=== PATIENT | female | born 1975 | race Caucasian/White ===

== ENCOUNTER 2018-08-17 07:49 | Emergency (ER) | payer OTHER, MEDICAID, SELFPAY ==
[2018-08-17] VITALS (10 sets, daily range): BP systolic 119–144; BP diastolic 79–96; PULSE 88–94; RESP 14; TEMP 36.6; O2SAT 86–98
--- NOTE | 2018-08-17 08:23 | W.ED.GENAD ---
Discharge Plan Disposition Patient Disposition: HOME Condition: Improving Discharge Details Chief Complaint: FlankPain Clinical Impression: Left flank pain Primary Care Provider: None,None ED Provider: Chino Florence Home Meds and New Rx's Prescriptions: New ondansetron HCl [Zofran] 4 mg tablet 4 mg PO QID PRN (Reason: nausea and vomiting) Qty: 10 RF: 0 hydrocodone-acetaminophen 5-325 mg tablet 1 tab PO Q6H PRN (Reason: pain) Qty: 5 RF: 0 tamsulosin [Flomax] 0.4 mg capsule 0.4 mg PO DAILY Qty: 5 RF: 0 Continued acetaminophen [Mapap Extra Strength] 500 MG tablet 1,000 mg PO QID RF: 0 albuterol sulfate [ProAir HFA] 8.5 GM HFA aerosol inhaler 2 puff Inhalation QID RF: 0 Flovent HFA 220 mcg/actuation Hfa Aerosol Inhaler 2 puff INHALATION BID PRNRF: 0 epinephrine [EpiPen 2-Oscar] 0.3 mg/0.3 mL Auto-Injector 0.3 mg IM ONCE RF: 0 Discharge Instructions Instructions: Flank Pain (ED) Additional Instructions: We will assist you in arranging outpatient follow-up to establish primary care as well as for urology follow-up and recheck. Take the Flomax as prescribed once daily while having symptoms of pain. Stop if you are not having ongoing pain. This medication may make you lightheaded when standing up quickly. May use Tylenol or the prescribed Vicodin as needed for severe pain. Return if you develop a fever, worsening discomfort, or any other acute concern Medical Decision Making 43-year-old female presents from her newly established home in [facility] with approximately 3 days of intermittent episodes of left flank pain with associated dysuria, similar to previous episodes of renal colic. She is afebrile and otherwise well-appearing. She certainly has tenderness in the left flank and left lower quadrant. Differential diagnosis includes renal colic, pyelonephritis or urinary tract infection. Patient IV access established, given analgesic, antiemetic, fluid bolus. Given her history of kidney stones patient referred for labs and CT imaging. Labs are notable for ketones in the urine, mildly elevated white blood cell count. BUN 31, creatinine 1.2. Patient improved with medication. Her CT images are without acute finding. I question a distal ureteral stone but there is no hydronephrosis or perinephric strain. She is stable and appropriate for outpatient management. Will arrange outpatient urology follow-up and assist her in establishing primary care. I will place her on Flomax for probable left ureteral colic as well as a few analgesics for home to which she is been consented. HPI General Mode of arrival: ambulatory. Date/Time Provider Initiated Documentation: 08/17/18 08:12. Limitations to Documentation: no limitations. Information obtained by: patient. History of Present Illness 43 year old F presents to the emergency department with the chief complaint of Stuttering left flank pain over days, described as moderate and similar to prior episodes, Quality is described as aching, and is localized to the abdomen and left. Patient reports radiation to back. Patient started experiencing this day(s) and it has been intermittent. No relieving factors improve symptom(s), No exacerbating factors reported . Patient notes no other symptoms.; denies fever/chills. Patient did receive the following treatments prior to arrival, none Related Data Home Medications Medication Instructions Recorded Confirmed acetaminophen [Mapap Extra 1,000 mg PO QID 05/20/14 08/17/18 Strength] albuterol sulfate [ProAir HFA] 2 puff INHALATION QID 05/20/14 08/17/18 Flovent HFA 2 puff INHALATION BID PRN 08/17/18 08/17/18 epinephrine [EpiPen 2-Oscar] 0.3 mg IM ONCE 08/17/18 08/17/18 hydrocodone-acetaminophen 1 tab PO Q6H PRN #5 tab 08/17/18 ondansetron HCl [Zofran] 4 mg PO QID PRN #10 tab 08/17/18 tamsulosin [Flomax] 0.4 mg PO DAILY #5 cap 08/17/18 Previous Rx's Medication Instructions Recorded hydrocodone-acetaminophen 1 tab PO Q6H PRN #5 tab 08/17/18 ondansetron HCl [Zofran] 4 mg PO QID PRN #10 tab 08/17/18 tamsulosin [Flomax] 0.4 mg PO DAILY #5 cap 08/17/18 Allergies Allergy/AdvReac Type Severity Reaction Status Date / Time iodine Allergy Severe Anaphylaxsi Unverified 08/17/18 08:20 s NSAIDS (Non-Steroidal Allergy Severe Hives Unverified 08/17/18 08:20 Anti-Inflamma allopurinol Allergy Unverified 08/17/18 08:20 Penicillins Allergy Unverified 08/17/18 08:20 hydrochlorothiazide AdvReac Intermediate Unverified 08/17/18 08:20 tramadol AdvReac Intermediate Nausea Unverified 08/17/18 08:20 quetiapine fumarate AdvReac Unverified 08/17/18 08:20 [From Seroquel] bee stings Allergy Severe Anaphylaxsi Uncoded 08/17/18 08:20 s seafood Allergy Severe Anaphylaxsi Uncoded 08/17/18 08:20 s General Stated Complaint: FlankPain LUDWIG: 3 Review of Systems Review of Systems 6 systems reviewed and o/w - PFSH Medical History Bipolar 1 disorder, depressed (Acute) Closed fracture dislocation of sacroiliac joint with routine healing (Acute) Degenerative joint disease of low back (Acute) Fracture of left great toe (Acute) Asthma (Chronic) Kidney calculi (Chronic) Surgical History H/O hysterectomy with oophorectomy (Acute) History of carpal tunnel surgery of left wrist (Acute) History of carpal tunnel surgery of right wrist (Acute) History of repair of anterior cruciate ligament of left knee (Acute) Hx of ovarian cystectomy (Acute) S/P bilateral breast reduction (Acute) History of cholecystectomy (Chronic) Social History Smoking/Tobacco Use Status: Never Alcohol Intake: current Alcohol Intake frequency: a few times a month Drug use: Occasionally Substance use type: marijuana Do you feel safe at home: Yes Do you feel safe in your relationship?: Yes Exam Narrative Exam Narrative: GEN: awake, alert, oriented 3. Pleasant, well groomed, interactive. HEAD: Normocephalic, atraumatic ENT: Mucous membranes moist, oropharynx unremarkable, External ear exam unremarkable EYES: PERRL, EOMI NECK: Full ROM, no ISABEL, no menigismus CHEST/RESP: Nontender, clear to auscultation bilateral, no wheeze/rhonchi/rales CARDIOVASCULAR: RRR, no murmur, rub michael. 2+ Rad pulse bilateral ABDOMEN: Soft, tender in the left lateral lower quadrant and left flank to percussion, no mass. +Bowel sounds EXT: Full ROM, no edema, no rash Neuro: Grossly normal neurologic exam, conversant, interactive. Psych: Speech fluent, thoughts congruent, affect normal Course Vital Signs Temperature 36.6 C 08/17/18 07:58 Pulse 94 H 08/17/18 07:58 Respiratory Rate 14 08/17/18 07:58 Blood Pressure 135/96 H 08/17/18 07:58 Pulse Oximetry 97 08/17/18 07:58 Temperature 36.6 C 08/17/18 07:58 Temperature Source Tympanic 08/17/18 07:58 Pulse 94 H 08/17/18 07:58 Respiratory Rate 14 08/17/18 07:58 Respiratory Effort Non-Labored 08/17/18 08:15 Blood Pressure 135/96 H 08/17/18 07:58 Blood Pressure Position Sitting 08/17/18 07:58 Pulse Oximetry 97 08/17/18 07:58 Oxygen Delivery Method Room Air 08/17/18 07:58 Oxygen Flow Rate 0 08/17/18 07:58 Pain Level 8 08/17/18 08:07 Comment 08/17/18 07:58
[2018-08-17 08:24] LABS: Bilirubin Negative (Negative); Blood Negative (Negative); Clarity Sl Cloudy; Glucose Negative (Negative); Ketones Trace mg/dL (Negative); Leukocyte Esterase Negative (Negative); Nitrite Negative (Negative); Specific Gravity 1.025 (1.005-1.025); Urobilinogen 0.2 EU/dL (Up TO 0.2)
[2018-08-17] MEDS: Normal Saline Flush 10 ML SYR IVP (08:25)
[2018-08-17 08:40] LABS: Abs Immature Grans 0.04 k/cumm (0.0-0.09); Absolute Basophil Count 0.07 k/cumm (0.0-0.2); Absolute Lymphocyte Count 4.89 k/cumm (1.2-3.4); Basophils % 0.5; Eosinophils % 1.1; HCT 37.4 % (36.0-46.0); HGB 12.7 g/dL (12.0-15.5); Immature Grans % 0.3; Mean Corpuscular Hemoglobin 29.6 pg (27.0-33.0); Mean Corpuscular Volume 87.2 fL (80-95); Mean Platelet Volume 9.8 fL (8.0-11.0); Monocytes % 7.9; Neutrophils % 55.2; Platelet Count 374 x1000/uL (130-400); RBC 4.29 m/cumm (4.00-5.20); RBC Distribution Width 12.5 % (11.7-14.6); White Blood Cell Count 13.96 k/cumm (4.4-10.8)
[2018-08-17 08:41] LABS: Absolute Eosinophil Count 0.15 k/cumm (0.0-0.7); Absolute Neutrophil Count 7.71 k/cumm (1.2-6.7)
[2018-08-17] MEDS: Normal Saline 1,000 ML 1000 ML IV (08:44)
[2018-08-17] MEDS: Ondansetron 4 MG/2 ML VIAL IVP (08:49)
[2018-08-17] MEDS: HYDROmorphone 2 MG/ML VIAL 1 MG IVP ×2 (08:52→09:35)
[2018-08-17 08:53] LABS: ALT 40 U/L (12-78); AST 22 U/L (15-37); Alkaline Phosphatase 126 U/L (46-116); Anion Gap 11.4 mmol/L (3-11); BUN 31 mg/dL (7-18); Bilirubin, Total 0.6 mg/dL (0.2-1.0); CO2 26.6 mmol/L (21.0-32.0); CREATININE 1.25 mg/dL (0.55-1.02); Calcium 9.2 mg/dL (8.5-10.1); Chloride 98 mmol/L (98-107); Estimated GFR 46.35 (mL/min/1.73m2); Glucose 103 mg/dL (70-100); Potassium 3.5 mmol/L (3.5-5.1); Sodium 136 mmol/L (136-145); Total Protein 7.8 g/dL (6.4-8.2)
--- NOTE | 2018-08-17 09:23 | DI.CT_ITS ---
SYMPTOM/DIAGNOSIS: LT FLANK PAIN, DYSURIA RENAL COLIC CT: Comparison is made with 08/21/14. There is no evidence of urinary tract calculi or hydronephrosis. The bladder is mildly distended and unremarkable. The patient is status post hysterectomy. The visualized portions of the lung bases show dependent changes. The patient is status post cholecystectomy. There is no biliary dilatation. The spleen, pancreas and adrenals appear normal. There is no bowel dilatation or inflammatory change. There are scattered diverticula in the colon. The appendix appears normal. The aorta is normal in diameter. There is hardware across both SI joints creating mild artifact in the adjacent portions of the pelvis. IMPRESSION: No acute abnormality.
[2018-08-17] MEDS: Tamsulosin 0.4 MG CAPCR PO (09:35)
--- NOTE | 2018-08-17 09:40 | PDOC.ERCMPRO ---
Care Management Progress Note 08/17-Dr. Florence requested assistance with establishing a PCP ([facility]) and f/u for abdominal and flank pain. Referral faxed to [facility] this am.
--- NOTE | 2018-08-17 09:41 | CMPROGNOTE_ITS ---
Care Management Progress Note 08/17-Dr. Florence requested assistance with establishing a PCP ([facility]) and f/u for abdominal and flank pain. Referral faxed to [facility] this am.
== END 2018-08-17 10:18 | disposition home or self-care (01) ==
PROVIDERS: Emergency Provider Emergency Medicine
DX: R10.9 Unspecified abdominal pain (principal); R30.0 Dysuria
CPT/HCPCS: 36415; 80053; 96361; 96374; 96375; 99284; 74176; 81003; 85025; J2405

== ENCOUNTER 2018-08-22 07:32 | Emergency (ER) | payer OTHER, MEDICAID, SELFPAY ==
[2018-08-22 07:34] VITALS: BP 140/89; PULSE 93; RESP 16; TEMP 36.2; O2SAT 100
[2018-08-22 07:49] LABS: Bilirubin Negative (Negative); Blood Negative (Negative); Clarity Clear; Glucose Negative (Negative); Ketones Negative (Negative); Leukocyte Esterase Negative (Negative); Nitrite Negative (Negative); Specific Gravity >= 1.030 (1.005-1.025); Urobilinogen 0.2 EU/dL (Up TO 0.2)
[2018-08-22] MEDS: Acetaminophen 500 MG TAB 1000 MG PO (08:04)
[2018-08-22] MEDS: Lidocaine 5% Patch 1 PATCH TP (08:04)
--- NOTE | 2018-08-22 08:15 | W.ED.GENAD ---
Discharge Plan Disposition Patient Disposition: HOME Condition: Good Discharge Details Chief Complaint: FlankPain Clinical Impression: Left low back pain, Left flank pain Primary Care Provider: None,None ED Provider: Nacho Messer Home Meds and New Rx's Prescriptions: New lidocaine [Lidoderm] 1 PATCH patch 1 patch Topical Q24H Qty: 4 RF: 0 cyclobenzaprine 10 mg tablet 10 mg PO TID Qty: 14 RF: 0 Continued acetaminophen [Mapap Extra Strength] 500 MG tablet 1,000 mg PO QID RF: 0 albuterol sulfate [ProAir HFA] 8.5 GM HFA aerosol inhaler 2 puff Inhalation QID RF: 0 Flovent HFA 220 mcg/actuation Hfa Aerosol Inhaler 2 puff INHALATION BID PRNRF: 0 epinephrine [EpiPen 2-Oscar] 0.3 mg/0.3 mL Auto-Injector 0.3 mg IM ONCE RF: 0 ondansetron HCl [Zofran] 4 mg tablet 4 mg PO QID PRN (Reason: nausea and vomiting) Qty: 10 RF: 0 tamsulosin [Flomax] 0.4 mg capsule 0.4 mg PO DAILY Qty: 5 RF: 0 Discharge Instructions Instructions: Low Back Strain (ED), Flank Pain (ED) Additional Instructions: Please take the Tylenol, Lidoderm patch and Flexeril as directed. Do not drive any vehicles, operate heavy machinery or use firearms when taking Flexeril as it may make you lightheaded and dizzy. if you notice any worsening of your symptoms, or any new symptoms such as vomiting, diarrhea, fever, chills, shortness of breath, chest pain, numbness, weakness, or fainting , please return immediately to the emergency department for reevaluation. Please follow up with your primary care provider as soon as possible for reassessment and reevaluation. As always, it was a pleasure participating in your medical care today. Medical Decision Making This is a 43-year-old female with a past medical history of kidney stones and asthma who presents today for continuing left sided abdominal pain. Patient states that it feels like her previous kidney stones. CT scan was performed 6 days ago on her last visit and was negative for any acute process including diverticulitis, appendicitis, or kidney stone. Today the patient's pain appears notably musculoskeletal with reproducible left paraspinal pain, and left CVA tenderness. No significant abdominal pain on palpation. Urinalysis is negative for any signs of hematuria or infection. Vital signs are stable and reassuring, no signs of acute appendicitis or significant diverticulitis on exam. This time we will attempt to control the patient's pain with Lidoderm patch and Tylenol, and reassess. With a negative CT scan, reassuring vital signs and benign urinalysis I do not feel that immediate or emergent repeat CT imaging is indicated, however I will discuss potential reimaging with the patient. 9:41 AM The patient's urinalysis was negative. Pain was slightly improved with Lidoderm patch and Tylenol. In spite of this to having a long conversation with the patient she requested further additional workup. I had a long discussion with her regarding the low likelihood of significant abnormality, including the risks with associated repeat CT scan, however the patient is still requesting repeat imaging. Because of this laboratory workup was performed there are no significant abnormalities. Repeat CT scan was performed and per Dr. Mason there is no acute process, kidney stone, or other abnormality.Patient's pain is improved. With benign workup, no signs of acute emergent process, no other significant abnormality with reassuring stable vital signs I feel that she can be safely discharged home. We will recommend that she closely follows up with her PCP that we are helping to orchestrate at this time I have extensively reviewed the treatment plan and discharge instructions with the patient. I have addressed all patient concerns at this time. The patient was made aware of what symptoms to monitor for that would warrant a return to the emergency department. Discussed the plan with the patient, they demonstrate verbal understanding and agreement with our assessment and plan at this time. . HPI General Date/Time Provider Initiated Documentation: 08/22/18 07:46. HPI Narrative: This is a pleasant 43-year-old female who presents for left-sided flank pain. Patient states that she has a history of kidney stones. She was here 6 days ago with complaint of left-sided flank pain, and at that time had a negative CT scan, and otherwise benign workup. The patient was discharged with suspected past urolithiasis, and recommended for outpatient urology follow-up as well as PCP follow-up. Patient states that her pain has continued since then. She has run out of her [place], and states that she still has pain. She states that she cannot take Aleve or ibuprofen as it has made her asthma worse in the past. She denies any anaphylaxis from these medications though, and does state that she occasionally will take ibuprofen though. The patient states that her symptoms do feel similar to her previous kidney stones. She denies any fever, chills, vomiting, or diarrhea. She does admit to mild to moderate left-sided back pain with her left flank pain. She denies any IV or illicit drug use. She denies any other complaints at this time. She has been able to eat and drink, and denies any p.o. intolerance. She denies any chest pain, shortness of breath, dysuria, hematuria, hematochezia, melena, or acholic stool. She denies any vaginal discharge. No other complaints or modifying factors. She does state that Tylenol does help, but she has not taken any since yesterday. Related Data Home Medications Medication Instructions Recorded Confirmed acetaminophen [Mapap Extra 1,000 mg PO QID 05/20/14 08/22/18 Strength] albuterol sulfate [ProAir HFA] 2 puff INHALATION QID 05/20/14 08/22/18 Flovent HFA 2 puff INHALATION BID PRN 08/17/18 08/22/18 epinephrine [EpiPen 2-Oscar] 0.3 mg IM ONCE 08/17/18 08/22/18 ondansetron HCl [Zofran] 4 mg PO QID PRN #10 tab 08/17/18 08/22/18 tamsulosin [Flomax] 0.4 mg PO DAILY #5 cap 08/17/18 08/22/18 cyclobenzaprine 10 mg PO TID #14 tab 08/22/18 lidocaine [Lidoderm] 1 patch TOPICAL Q24H #4 patch 08/22/18 Previous Rx's Medication Instructions Recorded ondansetron HCl [Zofran] 4 mg PO QID PRN #10 tab 08/17/18 tamsulosin [Flomax] 0.4 mg PO DAILY #5 cap 08/17/18 cyclobenzaprine 10 mg PO TID #14 tab 08/22/18 lidocaine [Lidoderm] 1 patch TOPICAL Q24H #4 patch 08/22/18 Allergies Allergy/AdvReac Type Severity Reaction Status Date / Time iodine Allergy Severe Anaphylaxsi Unverified 08/22/18 08:09 s NSAIDS (Non-Steroidal Allergy Severe Hives Unverified 08/22/18 08:09 Anti-Inflamma allopurinol Allergy Unverified 08/22/18 08:09 Penicillins Allergy Unverified 08/22/18 08:09 hydrochlorothiazide AdvReac Intermediate Unverified 08/22/18 08:09 tramadol AdvReac Intermediate Nausea Unverified 08/22/18 08:09 quetiapine fumarate AdvReac Unverified 08/22/18 08:09 [From Seroquel] bee stings Allergy Severe Anaphylaxsi Uncoded 08/22/18 08:09 s seafood Allergy Severe Anaphylaxsi Uncoded 08/22/18 08:09 s General Stated Complaint: FlankPain LUDWIG: 3 Review of Systems Review of Systems All systems reviewed & are unremarkable except as noted in HPI and below PFSH Medical History Bipolar 1 disorder, depressed (Acute) Closed fracture dislocation of sacroiliac joint with routine healing (Acute) Degenerative joint disease of low back (Acute) Fracture of left great toe (Acute) Asthma (Chronic) Kidney calculi (Chronic) Surgical History H/O hysterectomy with oophorectomy (Acute) History of carpal tunnel surgery of left wrist (Acute) History of carpal tunnel surgery of right wrist (Acute) History of repair of anterior cruciate ligament of left knee (Acute) Hx of ovarian cystectomy (Acute) S/P bilateral breast reduction (Acute) History of cholecystectomy (Chronic) Social History Smoking/Tobacco Use Status: Never Alcohol Intake: never Drug use: Occasionally Substance use type: does not use Do you feel safe at home: Yes Do you feel safe in your relationship?: Yes Exam Narrative Exam Narrative: 1.Const: Well-nourished, Well-developed, appearing stated age 2.Eyes: PERRL, no conjunctival injection, and symmetrical lids. 3.ENT: Atraumatic external nose and ears. Moist MM. Neck: Symmetric, trachea midline, No thyromegaly. 4.CVS: +S1/S2, No murmurs or gallops. Peripheral pulses 2+ and equal in all extremities. Brisk capillary refill in all extremities. 5.RESP: Unlabored respiratory effort. Clear to auscultation bilaterally. No wheezes rales or rhonchi 6.GI: Soft, Nontender/Nondistended, No hepatosplenomegaly. No guarding or rebound. No right lower quadrant tenderness, negative Cid sign, no pain at McBurney's point. Mild left CVA tenderness on percussion. No significant reproducible left lower quadrant abdominal pain. 7.MSK: Normocephalic/Atraumatic, Extremities w/o deformity or ttp No cyanosis or clubbing, Normal movement of all extremities. Notable left paraspinal muscle spasm, and reproducible left paraspinal pain. 8.Skin: Warm, Dry. No rashes or lesions. 9.Neuro: smooth and burr worker composites II-XII grossly intact. Sensation grossly intact, no focal neurologic deficits. 10.Psych: (AAO) x3. Appropriate mood and affect Course Vital Signs Temperature 36.2 C L 08/22/18 07:34 Pulse 93 H 08/22/18 07:34 Respiratory Rate 16 08/22/18 07:34 Blood Pressure 140/89 08/22/18 07:34 Pulse Oximetry 100 08/22/18 07:34 Temperature 36.2 C L 08/22/18 07:34 Temperature Source Temporal Artery Scan 08/22/18 07:34 Pulse 93 H 08/22/18 07:34 Respiratory Rate 16 08/22/18 07:34 Respiratory Effort Non-Labored 08/22/18 08:07 Blood Pressure 140/89 08/22/18 07:34 Blood Pressure Position Sitting 08/22/18 07:34 Pulse Oximetry 100 08/22/18 07:34 Oxygen Delivery Method Room Air 08/22/18 07:34 Oxygen Flow Rate 0 08/22/18 07:34 Pain Level 8 08/22/18 08:08 Lab/Test Results Lab/Test Results: Laboratory Tests Range/Units 08/22/18 07:43 Urine Color (Yellow) Yellow Urine Clarity Clear Urine pH (5-8) 6.0 Ur Specific [place] (1.005-1.025) >= 1.030 H Urine Protein (Negative) mg/dL Negative Urine Ketones (Negative) mg/dL Negative Urine Blood (Negative) Negative Urine Nitrite (Negative) Negative Urine Bilirubin (Negative) Negative Urine Urobilinogen (Up TO 0.2) EU/dL 0.2 Ur Leukocyte Esterase (Negative) Negative Urine Glucose (Negative) mg/dL Negative
--- NOTE | 2018-08-22 08:34 | DI.CT_ITS ---
SYMPTOM/DIAGNOSIS: LT LOWER AND LT FLANK PAIN ABDOMEN AND PELVIC CT: CT scan of the abdomen and pelvis was performed following the uneventful administration of intravenous contrast material. Comparison examination is 08/17/18. Atelectatic changes are seen in the left lung base. The lungs are otherwise clear. The liver is normal in size. No suspicious hepatic mass is seen. The patient is status post cholecystectomy. No biliary ductal dilatation is seen. The superior mesenteric, splenic and portal veins are patent. The pancreas and peripancreatic soft tissues are unremarkable as are the spleen and adrenal glands. The kidneys show normal and symmetric enhancement. No evidence of a solid renal mass or obstruction. The urinary bladder is intact. Reproductive organs are unremarkable as visualized. The abdominal aorta is of normal caliber. No significant abdominal or pelvic adenopathy, ascites or pneumoperitoneum is present. The bowel shows no evidence of obstruction or inflammation. No findings to suggest an acute appendicitis are present. There are again seen post surgical changes in the sacroiliac joints bilaterally. No acute osseous abnormality is present. IMPRESSION: No evidence of an acute abdomen/ The results were discussed with the ER on the date of the examination.
[2018-08-22 08:59] LABS: Abs Immature Grans 0.02 k/cumm (0.0-0.09); Absolute Basophil Count 0.05 k/cumm (0.0-0.2); Absolute Eosinophil Count 0.43 k/cumm (0.0-0.7); Absolute Lymphocyte Count 2.66 k/cumm (1.2-3.4); Absolute Monocyte Count 0.69 k/cumm (0.11-0.7); Absolute Neutrophil Count 5.24 k/cumm (1.2-6.7); Basophils % 0.6; Eosinophils % 4.7; HGB 14.2 g/dL (12.0-15.5); Immature Grans % 0.2; Lymphocytes % 29.3; Mean Corp. HGB Concentration 33.8 g/dL (32.0-36.0); Mean Corpuscular Hemoglobin 29.6 pg (27.0-33.0); Mean Corpuscular Volume 87.7 fL (80-95); Mean Platelet Volume 9.9 fL (8.0-11.0); Monocytes % 7.6; Neutrophils % 57.6; Platelet Count 363 x1000/uL (130-400); RBC 4.79 m/cumm (4.00-5.20); RBC Distribution Width 12.6 % (11.7-14.6); White Blood Cell Count 9.09 k/cumm (4.4-10.8)
[2018-08-22] MEDS: Omnipaque 350 MG/ML 100 ML BTL IJ (09:09)
[2018-08-22 09:10] LABS: ALT 34 U/L (12-78); AST 36 U/L (15-37); Albumin 3.9 g/dL (3.4-5.0); Alkaline Phosphatase 135 U/L (46-116); Anion Gap 9.2 mmol/L (3-11); BUN 24 mg/dL (7-18); Bilirubin, Total 0.3 mg/dL (0.2-1.0); CO2 28.8 mmol/L (21.0-32.0); CREATININE 0.63 mg/dL (0.55-1.02); Calcium 9.7 mg/dL (8.5-10.1); Chloride 103 mmol/L (98-107); Glucose 88 mg/dL (70-100); Lipase 95 U/L (73-393); Potassium 4.3 mmol/L (3.5-5.1); Sodium 141 mmol/L (136-145); Total Protein 8.2 g/dL (6.4-8.2)
[2018-08-22] MEDS: Normal Saline Flush 10 ML SYR IVP (09:10)
== END 2018-08-22 09:55 | disposition home or self-care (01) ==
PROVIDERS: Emergency Provider Student in an Organized Health Care Education/Training Program
DX: R10.32 Left lower quadrant pain (principal); Z87.442 Personal history of urinary calculi
CPT/HCPCS: 36415; 80053; 83690; 99285; 74177; 81003; 85025; 99284; J3490

== ENCOUNTER 2023-12-25 20:42 | Emergency (ER) | payer MEDICARE, MEDICAID, SELFPAY ==
[2023-12-25] VITALS (15 sets, daily range): BP systolic 126–142; BP diastolic 79–83; PULSE 61–75; RESP 11–21; TEMP 36.8; O2SAT 88–95
--- NOTE | 2023-12-25 20:30 | RT.EKG_ITS ---
APPROVED REPORT Exam: Resting ECG Reason for Exam: chest compressions Patient Location: E HR:72 bpm ECG Measurements Heart Rate 72 AXIS VT 160 P 45 QRSd 103 QRS 26 QT 439 T 29 QTc 482 Conclusion Sinus rhythm...normal P axis, V-rate 60- 99 sinus rhtyhm, normal axis, normal intervals, non ischemic
[2023-12-25 21:19] LABS: Abs Immature Grans 0.02 10^3/uL (0.0-0.06); Absolute Basophil Count 0.07 10^3/uL (0.0-0.2); Absolute Eosinophil Count 0.22 10^3/uL (0.0-0.7); Absolute Lymphocyte Count 2.91 10^3/uL (1.2-3.4); Absolute Monocyte Count 0.41 10^3/uL (0.1-0.8); Absolute Neutrophil Count 3.02 10^3/uL (1.2-6.7); Basophils % 1.1 %; Eosinophils % 3.3 %; HCT 36.7 % (36.0-46.0); HGB 12.2 g/dL (11.2-15.7); Immature Grans % 0.3 %; Lymphocytes % 43.8 %; MCHC 33.2 % (32.0-36.0); MCV 87 fL (80-95); MPV 9.5 fL (8.0-11.0); Monocytes % 6.2 %; Neutrophils % 45.3 %; Platelet Count 337 10^3/uL (130-400); RBC 4.21 10^6/uL (3.93-5.22); RDW 12.6 % (11.7-14.6); RDW-SD 40.3 fL; WBC 6.65 10^3/uL (4.4-10.8)
[2023-12-25 21:30] LABS: ALT 35 U/L (14-59); AST 21 U/L (15-37); Albumin 3.6 g/dL (3.4-5.0); Alkaline Phosphatase 92 U/L (46-116); Anion Gap 8.1 mmol/L (3-11); BUN 23 mg/dL (7-18); Bilirubin, Total 0.28 mg/dL (0.2-1.0); CO2 28.9 mmol/L (21.0-32.0); CREATININE 0.9 mg/dL (0.55-1.02); Calcium 8.8 mg/dL (8.5-10.1); Chloride 108 mmol/L (98-107); Estimated GFR 77.88 (mL/min/1.73m2); Glucose 114 mg/dL (74-106); Potassium 3.5 mmol/L (3.5-5.1); Sodium 145 mmol/L (136-145); Total Protein 6.9 g/dL (6.4-8.2)
--- NOTE | 2023-12-25 21:38 | DI.RAD_ITS ---
Exam(s) XR WRIST RT COMPLETE EXAM: XR WRIST RT COMPLETE CLINICAL HISTORY: wrist pain. TECHNIQUE: 2D digital imaging was performed of the right wrist. Three views were obtained. PA, lat eral and oblique views were obtained. COMPARISON: No exams were available for comparison FINDINGS: BONES: No acute fracture is present. No bony destructive lesion is seen. JOINTS: The carpal bones are normally aligned. SOFT TISSUE: Normal. IMPRESSION: Unremarkable radiographs of the right wrist. DATA REPOSITORY: RADIATION DOSE DELIVERED:
--- NOTE | 2023-12-25 21:38 | DI.RAD_ITS ---
Exam(s) XR CHEST 2V PA LATERAL EXAM: XR CHEST 2V PA LATERAL CLINICAL HISTORY: chest compression post OD TECHNIQUE: 2D digital imaging was performed of the chest. Two images were obtained. PA and lateral views were obtained. COMPARISON: No exams were available for comparison FINDINGS: MEDIASTINUM: Normal. HEART: Normal. PULMONARY VASCULATURE: Normal. LUNGS: No focal consolidating infiltrates. PLEURAL SPACE: No pleural effusion or pneumothorax. BONE:Within normal limits for the patient's age. OTHER FINDINGS:Normal. IMPRESSION: No acute pulmonary findings. DATA REPOSITORY: RADIATION DOSE DELIVERED:
--- NOTE | 2023-12-25 21:49 | ED.GENADUL_ITS ---
Discharge Plan Disposition Patient Disposition: Home Condition: Improving Discharge Details Chief Complaint: OD/Poison Clinical Impression: Opioid overdose Primary Care Provider: None,None ED Provider: Sam Gagnon Home Meds and New Rx's Prescriptions: No Action acetaminophen [Mapap Extra Strength] 500 MG tablet 1,000 mg PO QID albuterol sulfate [ProAir HFA] 8.5 GM HFA aerosol inhaler 2 puff Inhalation QID lidocaine [Lidoderm] 1 PATCH patch 1 patch Topical Q24H Qty: 4 0RF cyclobenzaprine 10 mg tablet 10 mg PO TID Qty: 14 0RF fluticasone propionate [Flovent HFA] 220 mcg/actuation Hfa Aerosol Inhaler 2 puff INHALATION BID PRN epinephrine [EpiPen 2-Oscar] 0.3 mg/0.3 mL Auto-Injector 0.3 mg IM ONCE ondansetron HCl [Zofran] 4 mg tablet 4 mg PO QID PRN (Reason: nausea and vomiting) Qty: 10 0RF tamsulosin [Flomax] 0.4 mg capsule 0.4 mg PO DAILY Qty: 5 0RF Discharge Instructions Instructions: Opioid Overdose Additional Instructions: Please follow-up with your primary care physician. Please return to the emergency department for any worsening symptoms HPI General Date/Time Provider Initiated Documentation: 12/25/23 20:45 . HPI Narrative: 48-year-old female brought in by EMS, endorses that she thought she was smoking crack at home but was actually smoking narcotic, bystanders performed chest compressions, EMS gave 10 mg Narcan with great response, patient does endorse some sternal discomfort where chest compressions were applied, mild nausea resolved with Zofran Related Data Home Medications ?Medication ?Instructions ?Recorded ?Confirmed acetaminophen 500 mg tablet (Mapap 1,000 mg PO QID 05/20/14 12/25/23 Extra Strength) albuterol sulfate 90 mcg/actuation 2 puff inhalation QID 05/20/14 12/25/23 aerosol inhaler (ProAir HFA) epinephrine 0.3 mg/0.3 mL 0.3 mg IM ONCE 08/17/18 12/25/23 injection, auto-injector (EpiPen 2-Oscar) fluticasone propionate 220 2 puff inhalation BID PRN 08/17/18 12/25/23 mcg/actuation HFA aerosol inhaler (Flovent HFA) ondansetron HCl 4 mg tablet 4 mg PO QID PRN nausea and 08/17/18 12/25/23 (Zofran) vomiting #10 tabs tamsulosin 0.4 mg capsule (Flomax) 0.4 mg PO DAILY #5 caps 08/17/18 12/25/23 cyclobenzaprine 10 mg tablet 10 mg PO TID #14 tabs 08/22/18 12/25/23 lidocaine 5 % topical patch 1 patch topical Q24H #4 patches 08/22/18 12/25/23 (Lidoderm) Previous Rx's ?Medication ?Instructions ?Recorded ondansetron HCl 4 mg tablet 4 mg PO QID PRN nausea and 08/17/18 (Zofran) vomiting #10 tabs tamsulosin 0.4 mg capsule (Flomax) 0.4 mg PO DAILY #5 caps 08/17/18 cyclobenzaprine 10 mg tablet 10 mg PO TID #14 tabs 08/22/18 lidocaine 5 % topical patch 1 patch topical Q24H #4 patches 08/22/18 (Lidoderm) Allergies Allergy/AdvReac Type Severity Reaction Status Date / Time iodine Allergy Severe Anaphylaxsi Unverified 12/25/23 20:44 s NSAIDS (Non-Steroidal Allergy Severe Hives Unverified 12/25/23 20:44 Anti-Inflamma allopurinol Allergy Mild Hives Unverified 12/25/23 20:44 Penicillins Allergy Mild Hives Unverified 12/25/23 20:44 hydrochlorothiazide AdvReac Intermediate Dizziness/L Unverified 12/25/23 20:44 ighthead tramadol AdvReac Intermediate Nausea Unverified 12/25/23 20:44 quetiapine fumarate (From AdvReac Dizziness/L Unverified 12/25/23 20:44 Seroquel) ighthead bee stings Allergy Severe Anaphylaxsi Uncoded 12/25/23 20:44 s seafood Allergy Severe Anaphylaxsi Uncoded 12/25/23 20:44 s General Stated Complaint: OD/Poison LUDWIG: 3 Exam Narrative Exam Narrative: Alert oriented no acute distress Pupils round equal reactive to light, moist mucous membranes tolerating secretions Normal voice no stridor Lungs clear bilaterally no rales rhonchi or wheezing Normal heart sounds normal sinus rhythm, no murmurs rubs or gallop No ecchymosis or trauma appreciated to chest wall or ribs Abdomen soft nontender nondistended Alert oriented interactive moving all extremities Course Vital Signs Vital signs: Vital Signs Temperature 36.8 C 12/25/23 20:34 Pulse 75 12/25/23 20:34 Respiratory Rate 14 12/25/23 20:34 Blood Pressure 139/81 12/25/23 20:34 Pulse Oximetry 93 12/25/23 20:34 Temperature 36.8 C 12/25/23 20:34 Temperature Source Temporal Artery Scan 12/25/23 20:34 Pulse 75 12/25/23 20:34 Respiratory Rate 14 12/25/23 20:45 Respiratory Effort Normal, Non-Labored 12/25/23 20:45 Blood Pressure 139/81 12/25/23 20:34 Blood Pressure Position Supine 12/25/23 20:34 Pulse Oximetry 93 12/25/23 20:34 Oxygen Delivery Method Nasal Cannula 12/25/23 20:34 Oxygen Flow Rate 2 12/25/23 20:34 Pain Level 0 12/25/23 20:34 Comment O2 Sat was 88% on Room Air, 93% on oxygen 12/25/23 20:34 Lab/Test Results Lab/Test Results: Laboratory Tests Range/Units 12/25/23 21:10 WBC (4.4-10.8) 10^3/uL 6.65 RBC (3.93-5.22) 10^6/uL 4.21 Hgb (11.2-15.7) g/dL 12.2 Hct (36.0-46.0) % 36.7 MCV (80-95) fL 87 MCH (27.0-33.0) pg 29.0 MCHC (32.0-36.0) % 33.2 RDW (11.7-14.6) % 12.6 Plt Count (130-400) 10^3/uL 337 MPV (8.0-11.0) fL 9.5 Immature Gran % % 0.3 Neutrophils % % 45.3 Lymphocytes % % 43.8 Monocytes % % 6.2 Eosinophils % % 3.3 Basophils % % 1.1 Nucleated RBC % (0.0-0.3) % 0.0 Absolute Neutrophils (1.2-6.7) 10^3/uL 3.02 Absolute Lymphocytes (1.2-3.4) 10^3/uL 2.91 Absolute Monocytes (0.1-0.8) 10^3/uL 0.41 Absolute Eosinophils (0.0-0.7) 10^3/uL 0.22 Absolute Basophils (0.0-0.2) 10^3/uL 0.07 Sodium (136-145) mmol/L 145 Potassium (3.5-5.1) mmol/L 3.5 Chloride (98-107) mmol/L 108 H Carbon Dioxide (21.0-32.0) mmol/L 28.9 Anion Gap (3-11) mmol/L 8.1 BUN (7-18) mg/dL 23 H Creatinine (0.55-1.02) mg/dL 0.9 Est GFR (CKD-EPI 2020) (mL/min/1.73m2) 77.88 Glucose (74-106) mg/dL 114 H Calcium (8.5-10.1) mg/dL 8.8 Total Bilirubin (0.2-1.0) mg/dL 0.28 AST (15-37) U/L 21 ALT (14-59) U/L 35 Alkaline Phosphatase (46-116) U/L 92 Total Protein (6.4-8.2) g/dL 6.9 Albumin (3.4-5.0) g/dL 3.6 Medical Decision Making 48-year-old female brought in by EMS, endorses that she thought she was smoking crack at home but was actually smoking narcotic, bystanders performed chest compressions, EMS gave 10 mg Narcan with great response, patient does endorse some sternal discomfort where chest compressions were applied, mild nausea resolved with Zofran; patient alert oriented interactive pupils round equal reactive to light, no hypoxia no hypotension, lungs clear bilaterally, no signs of chest trauma however patient does have discomfort where bystanders performed CPR, must consider rib fracture versus sternal injury, low suspicion for ACS or cardiac trauma, no signs of recrudescence of opioid intoxication, will observe here in department on monitor, will obtain basic labs, chest x-ray, likely home with close follow-up pending results 22: 52 patient resting comfortably no acute distress. Hemodynamically stable no respiratory depression. Chest x-ray unremarkable. Quality:SDOH Health Related Social Needs: No Data to Display PFSH All Active Problems (Updated 12/25/23 @ 22:53 by Sam Gagnon MD) Opioid overdose (Acute) Medical History (Updated 12/25/23 @ 22:53 by Sam Gagnon MD) Closed fracture dislocation of sacroiliac joint with routine healing Fracture of left great toe Degenerative joint disease of low back Bipolar 1 disorder, depressed Asthma Kidney calculi Surgical History (Updated 08/17/18 @ 08:35 by Madeleine Knowles) S/P bilateral breast reduction History of carpal tunnel surgery of right wrist History of carpal tunnel surgery of left wrist History of repair of anterior cruciate ligament of left knee History of cholecystectomy Hx of ovarian cystectomy H/O hysterectomy with oophorectomy Social History Smoking/Tobacco Use Status: Never Smoking risk assessment performed?: Yes Alcohol Intake: never Drug use: Occasionally Substance use type: does not use, crack/cocaine and heroin Do you feel safe at home: Yes Do you feel safe in your relationship?: Yes
--- NOTE | 2023-12-25 22:43 | DI.VRAD_ITS ---
PROCEDURE INFORMATION: Exam: XR Chest Exam date and time: 12/25/2023 9:24 PM Age: 48 years old Clinical indication: Injury or trauma; Other: Chest compression post od; Blunt trauma (contusions or hematomas); Injury date: 12/25/23 TECHNIQUE: Imaging protocol: Radiologic exam of the chest. Views: 2 views. COMPARISON: CT ABDOMEN PELVIS W 08/22/2018 8:58 AM FINDINGS: Lungs: Minimal bibasilar atelectasis. No focal consolidations or pulmonary edema. Pleural spaces: Unremarkable. No pleural effusion. No pneumothorax. Heart/Mediastinum: Normal. Bones/joints: No acute abnormality. Organs: Cholecystectomy clips in the right upper abdomen. IMPRESSION: No acute cardiopulmonary abnormality. Dictated and Authenticated by: Yusef Hoffman MD. Ordering:JENNY Vargas MD
--- NOTE | 2023-12-25 22:50 | DI.VRAD_ITS ---
PROCEDURE INFORMATION: Exam: XR Right Wrist Exam date and time: 12/25/2023 9:28 PM Age: 48 years old Clinical indication: Right; Patient HX: Wrist pain TECHNIQUE: Imaging protocol: Radiologic exam of the right wrist. Views: 3 or more views. COMPARISON: No relevant prior studies available. FINDINGS: Bones/joints: Normal. Soft tissues: Normal. IMPRESSION: No acute findings. Dictated and Authenticated by: Yusef Hoffman MD. Ordering:JENNY Vargas MD
== END 2023-12-25 23:04 | disposition home or self-care (01) ==
PROVIDERS: Emergency Provider Emergency Medicine
DX: T40.1X4A Poisoning by heroin, undetermined, initial encounter (principal); R40.0 Somnolence; Y92.89 Other specified places as the place of occurrence of the external cause
CPT/HCPCS: 36415; 80053; 93005; 99284; 71046; 73110; 85025; 93010; 99283